=== PATIENT | male | born 1970 | race Caucasian/White ===

== ENCOUNTER → 2021-08-29 | Day surgery (SDC) | payer OTHER ==
[~2021-08-29] VITALS: Ht 188 cm; Wt 106.6 kg
[~2021-08-29] MED LIST: ATORVASTATIN CA40 MG PO; COZAAR100 MG PO; ESCITALOPRAM OX10 MG PO; HCTZ25 MG PO; MUCINEX DM ER1 EACH PO
== END | disposition home or self-care (01) ==
LOC: FAS 06:33
DX: D12.0 Benign neoplasm of cecum (principal); D12.8 Benign neoplasm of rectum; K57.30 Diverticulosis of large intestine without perforation or abscess without bleeding; I10 Essential (primary) hypertension; E78.00 Pure hypercholesterolemia, unspecified; Z87.891 Personal history of nicotine dependence; Z79.899 Other long term (current) drug therapy; Z72.89 Other problems related to lifestyle
CPT/HCPCS: J2704; J7120